=== PATIENT | female | born 1965 | race Two or more races ===

== ENCOUNTER 2019-01-22 11:41 | Outpatient (CLI) | payer BC | END 2019-01-22 23:59 | disposition home or self-care (01) | LOC: RAD 11:41 | PROVIDERS: ATTEND Family Medicine | DX: J45.901 Unspecified asthma with (acute) exacerbation (principal) | CPT/HCPCS: 71046 ==

== ENCOUNTER 2019-02-15 12:29 | Outpatient (CLI) | payer BC | END 2019-02-15 23:59 | disposition home or self-care (01) | LOC: RAD 12:29 | PROVIDERS: ATTEND Family Medicine | DX: J01.90 Acute sinusitis, unspecified (principal) | CPT/HCPCS: 70220-TC ==